=== PATIENT | male | born 1940 | race Caucasian/White ===

== ENCOUNTER → 2017-01-25 | Outpatient (CLI) | payer MEDICARE | END | disposition home or self-care (01) | LOC: PCVCIMAG 08:52 | PROVIDERS: ATTEND Internal Medicine Cardiovascular Disease | DX: I71.4 Abdominal aortic aneurysm, without rupture (principal); I73.9 Peripheral vascular disease, unspecified; I48.2 Chronic atrial fibrillation; I25.10 Atherosclerotic heart disease of native coronary artery without angina pectoris; G47.33 Obstructive sleep apnea (adult) (pediatric); E78.00 Pure hypercholesterolemia, unspecified; R09.89 Other specified symptoms and signs involving the circulatory and respiratory systems | CPT/HCPCS: 80061; 93005; 93925; 93978; G0463 ==

== ENCOUNTER → 2017-11-02 | Outpatient (CLI) | payer MEDICARE ==
--- NOTE | 2017-11-02 11:59 | PCVCIMAG ---
EXAM: BILATERAL CAROTID DUPLEX INDICATION: Carotid Occlusive Disease. FINDINGS: Doppler Measurements (centimeters per second): RIGHT: Peak CCA-65, Peak ECA-299, Diastolic ICA-31, Peak ICA-82, ICA/CCA Ratio-1.3. LEFT: Peak CCA-75, Peak ECA-112, Diastolic ICA-32, Peak ICA-85, ICA/CCA Ratio-1.1. RIGHT CAROTID: The carotid bulb has mild plaque. The proximal internal carotid artery shows <40% stenosis. The common carotid artery shows no significant stenosis. The external carotid artery shows 80% stenosis. LEFT CAROTID: The carotid bulb has moderate plaque. The proximal internal carotid artery shows <40% stenosis. The common carotid artery shows no significant stenosis. The external carotid artery shows no significant stenosis. Antegrade flow in both vertebral arteries. IMPRESSION: <40% stenosis of the right internal carotid artery with mild plaque. <40% stenosis of the left internal carotid artery with moderate plaque. LOC:[place] [id number]
== END | disposition home or self-care (01) ==
LOC: PCVCIMAG 10:16
PROVIDERS: ATTEND Internal Medicine Cardiovascular Disease
DX: I65.23 Occlusion and stenosis of bilateral carotid arteries (principal)
CPT/HCPCS: 80061; 93005; 93880

== ENCOUNTER → 2018-02-19 | Outpatient (CLI) | payer MEDICARE | END | disposition home or self-care (01) | LOC: PCVCCLINIC 14:35 | DX: I25.10 Atherosclerotic heart disease of native coronary artery without angina pectoris (principal); I71.4 Abdominal aortic aneurysm, without rupture; I73.9 Peripheral vascular disease, unspecified; E78.00 Pure hypercholesterolemia, unspecified; I10 Essential (primary) hypertension; E11.9 Type 2 diabetes mellitus without complications; I48.2 Chronic atrial fibrillation; R10.9 Unspecified abdominal pain; Z95.1 Presence of aortocoronary bypass graft; Z87.891 Personal history of nicotine dependence; Z79.82 Long term (current) use of aspirin; Z79.899 Other long term (current) drug therapy | CPT/HCPCS: 80061; 93005; G0463 ==

== ENCOUNTER → 2018-03-16 | Outpatient (CLI) | payer MEDICARE | END | disposition home or self-care (01) | LOC: PCVCIMAG 09:26 | DX: I73.9 Peripheral vascular disease, unspecified (principal); R10.9 Unspecified abdominal pain; K55.1 Chronic vascular disorders of intestine | CPT/HCPCS: 93975; 93978 ==

== ENCOUNTER → 2018-09-27 | Outpatient (CLI) | payer MEDICARE | END | disposition home or self-care (01) | LOC: PCVCCLINIC 15:31 | PROVIDERS: ATTEND Internal Medicine Cardiovascular Disease | DX: I25.10 Atherosclerotic heart disease of native coronary artery without angina pectoris (principal); I10 Essential (primary) hypertension; I48.2 Chronic atrial fibrillation; I73.9 Peripheral vascular disease, unspecified; E11.9 Type 2 diabetes mellitus without complications; E78.00 Pure hypercholesterolemia, unspecified; I71.4 Abdominal aortic aneurysm, without rupture; Z95.828 Presence of other vascular implants and grafts; Z79.4 Long term (current) use of insulin; Z95.1 Presence of aortocoronary bypass graft; Z79.899 Other long term (current) drug therapy | CPT/HCPCS: 80061; 93005; G0463 ==

== ENCOUNTER → 2018-11-01 | Outpatient (CLI) | payer MEDICARE ==
[~2018-11-01] MED LIST: REGADENOSON 0.4 MG/5 ML DISP.SYRIN. IV ONE
--- NOTE | 2018-11-01 14:30 | PCVCIMAG ---
EXAM: BILATERAL LOWER EXTREMITY ARTERIAL DUPLEX INDICATION: Peripheral Arterial Disease. Leg pain. FINDINGS: Right Leg: Common femoral and profunda femoral arteries are patent. [place] superficial femoral artery is occluded throughout. Postsurgical changes of femoral-popliteal artery bypass graft which shows reasonable flow throughout. Note is made of a stent in the distal portion of the graft which is maintaining adequate patency. The mid and distal posterior tibial arteries occluded. The anterior tibial and peroneal artery are patent. Left Leg: Common femoral and profunda femoral arteries are patent. [place] superficial femoral artery is occluded throughout. Femoral-popliteal artery bypass graft maintaining patency. Anterior tibial, peroneal, and posterior tibial arteries remain patent. IMPRESSION: Right femoral-popliteal artery bypass graft remains patent as reviewed above. Occlusion mid/distal right posterior tibial artery. Previous left femoral-popliteal artery bypass graft showing good patency. LOC:[id number]
--- NOTE | 2018-11-04 07:59 | PCVCIMAG ---
APPROVED REPORT Imaging Protocol: Rest Tc-99m/Stress Tc-99m 1 day Study performed: 11/01/2018 12:43:39 Indication: Atrial Fibrillation, Dyspnea Patient Location: Out-Patient Stress Nurse: Claribel Turner RN, Teresa Inman RN [place] Tech:Kassy Harris [facility] Ht: 5 ft 11 in Wt: 220 lbs BSA: 2.20 m2 HR: 80 bpm BP: 129/66 mmHg BMI: 30.6 Rhythm: Atrial Fibrillation, RBBB Medical History Medical History: Atrial Fibrillation, Hyperlipidemia, Diabetic Insulin, CVD, PVD, CAD Medications: Eliquis, Lanoxin, HCTZ, Insulin, Keppra, Prinivil, Toprol, Pravastatin Allergies: Cephalexin Cardiac Risk Factors: Age Previous Cardiac Procedures: CABG - MURCIA to LAD; SVG to PDA; OLAYINKA to OM Pretest Chest Pain Characteristics: No chest pain Exercise History: Sedentary Meds Held (24 hrs): Toprol Resting Data Rest SPECT myocardial perfusion imaging was performed in supine position 45 minutes following the intravenous injection of 10.6 mCi of Tc-99m Sestamibi. Time of rest injection: 1200 Date: 11/01/2018 Administration Route: IV Administration Site: Right AC Pharmacologic Stress Pharmacologic stress test was performed by injecting Regadenoson 0.4 mg IV push over 10-15 seconds immediately followed by the intravenous injection of 35.7 mCi of Tc-99m Sestamibi. Time of stress injection: 1320 Date: 11/01/2018 Administration Route: IV Administration Site: Right AC Gated Stress SPECT was performed 45 minutes after stress injection. The images were gated to evaluate regional wall motion and calculate left ventricular ejection fraction. Stress Test Details Stress Test: Pharmacologic stress testing performed using 0.4 mg of regadenoson per 5 mL given IV over 10 seconds. Reason for pharmacologic stress test: physical limitation, uses walker. HRMax Heart Rate (APMHR): 144 bpm Resting HR: 80 bpmTarget HR (85% APMHR): 122 bpm Max HR Achieved: 78 bpm % of APMHR: 54 Recovery HR: 81 bpm BP Resting BP: 129/66 mmHg Max BP: 125/60 mmHg Recovery BP: 128/76 mmHg ECG Resting ECG: Atrial Fibrillation, RBBB Stress ECG: Atrial Fibrillation, RBBB Maximum ST Deviation: 1.3 mm Recovery ECG: Atrial Fibrillation, RBBB Clinical Reason for Termination: Completed protocol Stress Symptoms: Dyspnea Exercise duration: 0 min 55 sec Symptoms resolved with caffeine. Stress ECG Conclusion ECG: Non-ischemic Study Quality Study: Good Study Data Post stress, the left ventricular ejection was 69%.. SSS: 10 SRS: 9 SDS: 2 TID = 0.96. 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 Old incomplete infarct involving the apical anterior wall of the left ventricle with no lm-infarct ischemia. 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 Old incomplete infarct involving the apical anterior wall of the left ventricle with no lm-infarct ischemia. Post stress, the left ventricular ejection was 69%. No change since prior study dated January 2016. Interpreted by: Desean العراقي MD Electronically Approved: 11/02/2018 16:08:10 <Conclusion> ECG: Non-ischemic
== END | disposition home or self-care (01) ==
LOC: PCVCIMAG 10:48
PROVIDERS: ATTEND Internal Medicine Cardiovascular Disease
DX: I73.9 Peripheral vascular disease, unspecified (principal); I25.10 Atherosclerotic heart disease of native coronary artery without angina pectoris; I48.2 Chronic atrial fibrillation; I10 Essential (primary) hypertension; E11.9 Type 2 diabetes mellitus without complications; E78.00 Pure hypercholesterolemia, unspecified; R06.09 Other forms of dyspnea; Z79.4 Long term (current) use of insulin; Z95.828 Presence of other vascular implants and grafts; Z95.1 Presence of aortocoronary bypass graft
CPT/HCPCS: 78452; 93017; 93925; A9500; J2785

== ENCOUNTER → 2019-07-25 | Outpatient (CLI) | payer MEDICARE ==
--- NOTE | 2019-07-25 16:49 | PCVCIMAG ---
EXAM: BILATERAL LOWER EXTREMITY ARTERIAL DUPLEX INDICATION: Peripheral Arterial Disease. Leg pain. FINDINGS: Right Leg: Common femoral and popliteal arteries are patent. Occlusion throughout the [place] superficial femoral artery number popliteal artery. Surgical changes of femoral-popliteal artery bypass graft is present and graft is patent. Posterior tibial artery and peroneal arteries are occluded. Anterior tibial artery shows blunted arterial flow or prominent than 2018 study indicating likely stenosis. Left Leg: Common femoral and profunda femoral arteries are patent. Occlusion throughout the [place] superficial femoral artery and upper popliteal artery. Postsurgical changes of femoral-popliteal artery bypass graft is patent. Interval development of peroneal and posterior tibial artery occlusions. Anterior tibial artery is patent. IMPRESSION: Right femoral-popliteal artery bypass graft appears patent. Unchanged occlusion of the right peroneal and posterior tibial arteries. Interval development of stenosis right anterior tibial artery since October 2018 study. Left femoral-popliteal artery bypass graft is patent. Interval development of left peroneal and posterior tibial artery occlusions. LOC:[id number]
== END | disposition home or self-care (01) ==
LOC: PCVCIMAG 15:30
PROVIDERS: ATTEND Emergency Medicine
DX: I70.213 Atherosclerosis of native arteries of extremities with intermittent claudication, bilateral legs (principal); I65.23 Occlusion and stenosis of bilateral carotid arteries; I25.10 Atherosclerotic heart disease of native coronary artery without angina pectoris; E11.9 Type 2 diabetes mellitus without complications; J44.9 Chronic obstructive pulmonary disease, unspecified; I71.4 Abdominal aortic aneurysm, without rupture; I48.2 Chronic atrial fibrillation; I10 Essential (primary) hypertension; E78.00 Pure hypercholesterolemia, unspecified; Z79.4 Long term (current) use of insulin; Z91.048 Other nonmedicinal substance allergy status; Z88.1 Allergy status to other antibiotic agents
CPT/HCPCS: 36415; 80061; 93005; 93925; G0463